=== PATIENT | female | born 2000 | race Two or more races ===

== ENCOUNTER 2022-04-06 10:55 | Emergency (ER) | payer OTHER ==
[2022-04-06 11:57] LABS: BASOPHILS % (AUTO) 0.6 %; EOSINOPHILS % (AUTO) 0.2 %; HCT - HEMATOCRIT 40.6 % (37.0-47.0); HGB - HEMOGLOBIN 12.5 g/dL (12.0-16.0); LYMPHOCYTES # (AUTO) 0.9 10^3/uL (1.5-3.5); LYMPHOCYTES % (AUTO) 13.8 %; MEAN CORPUSCULAR HEMOGLOBIN 27.4 pg (27.0-31.0); MEAN CORPUSCULAR HGB CONC 30.8 g/dL (32.0-36.0); MEAN CORPUSCULAR VOLUME 88.8 fL (81.0-99.0); MONOCYTES # (AUTO) 0.5 10^3/uL (0.0-1.0); MONOCYTES % (AUTO) 8.1 %; NEUTROPHILS # (AUTO) 4.9 10^3/uL (1.5-6.6); PLT - PLATELET COUNT 199 10^3/uL (130-450); RED BLOOD COUNT 4.57 10^6/uL (4.20-5.40); RED CELL DISTRIBUTION WIDTH 12.1 % (12.0-15.0); WHITE BLOOD COUNT 6.3 x10^3/uL (4.8-10.8)
[2022-04-06 12:10] LABS: ALBUMIN 4.3 g/dL (3.2-5.5); ALBUMIN/GLOBULIN RATIO 1.3 (1.0-2.2); BILIRUBIN,TOTAL 0.8 mg/dL (0.2-1.0); CALCIUM 9.1 mg/dL (8.5-10.3); CREATININE 0.7 mg/dL (0.4-1.0); TOTAL PROTEIN 7.6 g/dL (6.7-8.2)
[2022-04-06 13:19] LABS: BILIRUBIN,URINE NEGATIVE (NEGATIVE); GLUCOSE, URINE (UA) NEGATIVE (NEGATIVE); KETONES,URINE (UA) NEGATIVE (NEGATIVE); LEUKOCYTE ESTERASE, URINE SMALL (NEGATIVE); NITRITE,URINE NEGATIVE (NEGATIVE); OCCULT BLOOD,URINE SMALL (NEGATIVE); PROTEIN,URINE NEGATIVE (NEGATIVE); UROBILINOGEN,URINE 0.2 (NORMAL) E.U./dL (NORMAL)
[2022-04-06 13:26] LABS: CLARITY,URINE CLEAR (CLEAR); HCG UR QUAL NEGATIVE
[2022-04-06 13:39] LABS: BACTERIA,URINE Few /HPF (None Seen); RBC,URINE 0-5 /HPF (0-5); SQUAMOUS EPITHELIAL CELL,UR FEW Squamous (<= Few); WBC CLUMPS,URINE PRESENT
[2022-04-06] MEDS ORDERED: iohexoL-300 100 ML VIAL ONE (16:57)
--- NOTE | 2022-04-06 17:19 | ED Physician Documentation ---
PD HPI ABD PAIN - Stated complaint Stated Complaint: ABD PX - Chief complaint Chief Complaint: Abd Pain - History obtained from History obtained from: Patient - Additional information Additional information: Patient is a 21-year-old female presenting for evaluation of generalized abdominal pain that is been present since Tuesday.It comes and goes and feels sharp at times. She denies associated nausea or vomiting but reports decreased appetite. She denies dysuria, vaginal bleeding or discharge. She denies concern for . She denies history of prior abdominal surgeries. Review of Systems Constitutional: denies: Fever Nose: denies: Congestion Cardiac: denies: Chest pain / pressure Respiratory: denies: Dyspnea GI: reports: Abdominal Pain : denies: Dysuria Musculoskeletal: denies: Back pain PD PAST MEDICAL HISTORY - Present Medications Home Medications: Ambulatory Orders Medication Instructions Recorded Confirmed Nitrofurantoin [Macrobid] 1 cap PO BID #10 cap 04/06/22 - Allergies Allergies/Adverse Reactions: Allergies Allergy/AdvReac Type Severity Reaction Status Date / Time No Known Drug Allergies Allergy Verified 04/06/22 11:27 PD ED PE NORMAL - General General: Alert and oriented X 3, No acute distress, Well developed/nourished - HEENT HEENT: Atraumatic - Neck Neck: Supple, no meningeal sign - Cardiac Cardiac: RRR, No murmur, Strong equal pulses - Respiratory Respiratory: No respiratory distress, Clear bilaterally - Abdomen Abdomen: Normal bowel sounds, Soft, Non distended, Other - Derm Derm: Warm and dry - Extremities Extremities: No edema Results - Vitals Vitals: Vital Signs - 24 hr 04/06/22 04/06/22 04/06/22 11:24 15:58 17:00 Temperature 36.3 C L 36.5 C Heart Rate 74 72 70 Respiratory 16 16 16 Rate Blood Pressure 106/63 108/62 110/60 O2 Saturation 100 100 100 Oxygen O2 Source Room air - Labs Labs: Laboratory Tests 04/06/22 04/06/22 04/06/22 11:50 11:50 13:09 WBC 6.3 RBC 4.57 Hgb 12.5 Hct 40.6 MCV 88.8 MCH 27.4 MCHC 30.8 L RDW 12.1 Plt Count 199 MPV 10.0 Neut # (Auto) 4.9 Lymph # (Auto) 0.9 L Peach # (Auto) 0.5 Eos # (Auto) 0.0 Baso # (Auto) 0.0 Absolute Nucleated RBC 0.00 Nucleated RBC % 0.0 Sodium 137 Potassium 4.0 Chloride 100 L Carbon Dioxide 27 Anion Gap 10.0 BUN 8 Creatinine 0.7 Estimated GFR (MDRD) 108 Glucose 95 Calcium 9.1 Total Bilirubin 0.8 AST 17 ALT 13 Alkaline Phosphatase 91 Total Protein 7.6 Albumin 4.3 Globulin 3.3 Albumin/Globulin Ratio 1.3 Lipase 26 Urine Color YELLOW Urine Clarity CLEAR Urine pH 6.0 Ur Specific [place] <=1.005 Urine Protein NEGATIVE Urine Glucose (UA) NEGATIVE Urine Ketones NEGATIVE Urine Occult Blood SMALL H Urine Nitrite NEGATIVE Urine Bilirubin NEGATIVE Urine Urobilinogen 0.2 (NORMAL) Ur Leukocyte Esterase SMALL H Urine RBC 0-5 Urine WBC 11-25 H Urine WBC Clumps PRESENT Ur Squamous Epith Cells FEW Squamous Urine Bacteria Few Ur Microscopic Review INDICATED Urine Culture Comments INDICATED Urine HCG, Qual NEGATIVE PD Medical Decision Making - ED course Complexity details: reviewed results, re-evaluated patient ED course: Pt presenting for evaluation of several days of generalized abdominal pain. Labs reviewed. UA with markers for infection. Pt reports at times having suprapubic discomfort. CT abd/pelv negative for acute findings. Denies concerns for STDs and no significant lower abdominal tenderness on my exam. Pt is comfortable with plan for antibiotics for UTI and close outpatient follow up. Declined need for pain and nausea meds and she is tolerating PO. Departure - Departure Disposition: 01 Home, Self Care Clinical Impression: Generalized abdominal pain, UTI (urinary tract infection) Condition: Stable Instructions: ED Abdominal Pain Female Non-Specific Abdominal Pain, ED UTI Cystitis Female Follow-Up: [facility] [Provider Group] Prescriptions: Nitrofurantoin [Macrobid] 1 cap PO BID #10 cap Comments: Your evaluated for generalized abdominal pain. Your CT scan does not show any acute findings to explain your symptoms. Your labs were overall unremarkable but your urine has markers for infection. I started you on antibiotic called Spencer and sent this prescriptions to [facility] in [place]. Please make sure [facility] If you have any worsening symptoms please consider return to the ER. Otherwise I would start with a bland diet for the neck several days to see if this helps improve your symptoms. Forms: Activity restrictions Discharge Date/Time: 04/06/22 19:11
[2022-04-06 17:56] VITALS: BP 110/60
--- NOTE | 2022-04-06 18:41 | CT Report ---
PROCEDURE: ABDOMEN/PELVIS W INDICATIONS: upper abd pain CONTRAST: 100mL Omni 300 TECHNIQUE: After the administration of contrast, 5 mm thick sections acquired from the diaphragms to the sym physis. 5 mm thick coronal and sagittal reformats were acquired. For radiation dose reduction, the following was used: automated exposure control, adjustment of mA and/or kV according to patient size . COMPARISON: None. FINDINGS: Image quality: Excellent. ABDOMEN: Lung bases: Lung bases are clear. Heart size is normal. Solid organs: Liver and spleen are normal in size and enhancement. Gallbladder is normal. Biliary system is non dilated. Pancreas enhances normally. No adrenal nodules. Kidneys demonstrate normal size and enhancement, without hydronephrosis. Peritoneum and bowel: Bowel loops demonstrate normal wall thickness and caliber. No free fluid or a ir. Nodes and vessels: No retroperitoneal or mesenteric adenopathy by size criteria. Aorta and inferior vena cava are normal in size. Miscellaneous: No ventral hernias. PELVIS: Genitourinary: Bladder wall thickness is normal. Miscellaneous: No inguinal hernias or adenopathy. Bones: No suspicious bony lesions. No vertebral body compression fractures. IMPRESSION: No acute abdominal or pelvic abnormality. Reviewed by: Buddy Simons on 04/06/2022 6:40 PM PST Approved by: Buddy Simons on 04/06/2022 6:40 PM PST Station ID: [id number]
[2022-04-06] MEDS: NITROFURANTOIN MACRO 100 MG CAPSULE PO STA (18:56)
[2022-04-06] MEDS: iohexoL-300 100 ML VIAL IVP ONE (19:04)
--- NOTE | 2022-04-08 15:18 | ED Physician Documentation ---
ED Addendum - Addendum Addendum: 04/08/22 15:17 The patient's urine culture came back showing greater than 100,000 Enterobacter [place]. It is indeterminately sensitive to nitrofurantoin. It is resistant to cefazolin. Sensitive to quinolones and Bactrim. Nursing staff did call the patient and she is still having symptoms so we can change the patient from the nitrofurantoin to Bactrim DS twice daily for 7 days. I transmitted it to [facility].
== END 2022-04-06 19:11 | disposition home or self-care (01) ==
LOC: ED 10:55
DX: N39.0 Urinary tract infection, site not specified (principal); B96.89 Other specified bacterial agents as the cause of diseases classified elsewhere
CPT/HCPCS: 36415; 74177; 80053; 81001; 81025; 83690; 85025; 87077; 87086; 87181; 99283; 99284; A9270; Q9967; 81003

== ENCOUNTER 2022-05-06 12:15 | Outpatient (CLI) | payer OTHER | END 2022-05-06 12:30 | disposition home or self-care (01) | LOC: LAB.N 12:15 | PROVIDERS: ATTEND Family Medicine | DX: N39.0 Urinary tract infection, site not specified (principal) | CPT/HCPCS: 87086 ==

== ENCOUNTER 2022-09-11 08:00 | Outpatient (CLI) | payer OTHER ==
[2022-09-11 20:52] LABS: BACTERIAL VAGINOSIS DNA POSITIVE (NEGATIVE); CANDIDA GLABRATA DNA NEGATIVE (NEGATIVE); CANDIDA GROUP DNA POSITIVE (NEGATIVE); CANDIDA KRUSEI DNA NEGATIVE (NEGATIVE); TRICHOMONAS VAGINALIS DNA NEGATIVE (NEGATIVE)
[2022-09-11 21:58] LABS: CHLAMYDIA TRACHOMATIS DNA NEGATIVE (NEGATIVE); NEISSERIA GONORRHOEAE DNA NEGATIVE (NEGATIVE)
== END 2022-09-11 23:59 | disposition home or self-care (01) ==
LOC: LAB.N 08:00
PROVIDERS: ATTEND Physician Assistant Medical
DX: N39.0 Urinary tract infection, site not specified (principal)
CPT/HCPCS: 81514; 87086; 87181; 87491; 87591; 87661

== ENCOUNTER 2023-11-07 14:00 | Outpatient (CLI) | payer OTHER | END 2023-11-07 14:15 | disposition home or self-care (01) | LOC: LAB.N 14:00 | PROVIDERS: ATTEND Physician Assistant Medical | DX: N39.0 Urinary tract infection, site not specified (principal) | CPT/HCPCS: 87086 ==